=== PATIENT | female | born 1965 | race Two or more races ===

== ENCOUNTER 2018-07-23 08:17 | Emergency (ER) | payer MEDICAID ==
[~2018-07-23] VITALS: Ht 154.9 cm; Wt 67.1 kg
--- NOTE | 2018-07-23 08:19 | NUR ---
BIB SELF, WITH C/O BOIL AT [facility] X 3 DAYS, AWAITING MD HENDRICKS
[2018-07-23] MEDS ORDERED: CEPHALEXIN MONOHYDRATE 500 MG CAPSULE PO ONE ×2 (08:48→09:00)
[2018-07-23] MEDS ORDERED: ACETAMINOPHEN 325 MG TABLET ONE (08:48)
[2018-07-23] MEDS ORDERED: ACETAMINOPHEN 325 MG TABLET PO ONE (09:00)
--- NOTE | 2018-07-23 09:11 | NUR ---
Patient discharged to home in stable condition. Written and verbal after care instructions given. Patient verbalizes understanding of instruction.
[2018-07-23 09:12] VITALS: BP 158/89
== END 2018-07-23 09:12 | disposition home or self-care (01) ==
LOC: ER 08:21
DX: L03.316 Cellulitis of umbilicus (principal); F17.200 Nicotine dependence, unspecified, uncomplicated; Z90.721 Acquired absence of ovaries, unilateral
CPT/HCPCS: 99283; A4606; Z7610

== ENCOUNTER 2018-07-28 10:26 | Emergency (ER) | payer MEDICAID ==
[~2018-07-28] VITALS: Ht 154.9 cm; Wt 63.5 kg
[2018-07-28 10:51] VITALS: BP 150/80
--- NOTE | 2018-07-28 11:35 | NUR ---
Patient discharged to home in stable condition. Written and verbal after care instructions given. Patient verbalizes understanding of instruction.
== END 2018-07-28 11:36 | disposition home or self-care (01) ==
LOC: ER 10:28
DX: Z48.00 Encounter for change or removal of nonsurgical wound dressing (principal); F17.200 Nicotine dependence, unspecified, uncomplicated; L02.211 Cutaneous abscess of abdominal wall
CPT/HCPCS: A4606; A6407; Z7610

== ENCOUNTER 2019-07-16 16:31 | Emergency (ER) | payer MEDICAID ==
[~2019-07-16] VITALS: Ht 154.9 cm; Wt 63.5 kg
[2019-07-16 16:49] VITALS: BP 181/106
--- NOTE | 2019-07-16 16:52 | NUR ---
URINE SPECIMEN COLLECTED AND SENT TO LAB
== END 2019-07-16 18:09 | disposition home or self-care (01) ==
LOC: ER 16:32
DX: L72.3 Sebaceous cyst (principal); L72.0 Epidermal cyst; L08.9 Local infection of the skin and subcutaneous tissue, unspecified; F17.200 Nicotine dependence, unspecified, uncomplicated